=== PATIENT | female | born 1990 | race Caucasian/White ===

== ENCOUNTER 2017-01-17 06:48 | Inpatient (IN) | payer BC ==
[~2017-01-17] VITALS: Ht 160 cm; Wt 118.0 kg
[~2017-01-17 06:48] MED LIST: PREN1TAB53 PO; PROG100C3 PO
[2017-01-17] MEDS ORDERED: LR 1,000 ML IV PRN (06:52)
--- OUTSIDE RECORDS SUMMARY | 2017-01-17 06:56 | XMS REPORT | Continuity of Care Document ---
Author Author [facility] Organization [facility] Address Unknown Phone Unavailable Support Name Relationship Address Phone YESENIA GODDARD MD Caregiver [address] [place] [address] [address] [place] [address] Unavailable YESENIA GODDARD MD Caregiver [address] [place] [address] [address] [place] [address] Unavailable FRANCESCO MACKENZIE DO Caregiver [address] [place] [address] [address] [place] [address] Unavailable CORIE LOMBARDI Next Of Kin [address] [place] [address] Insurance Providers Guarantor Blaise Lombardi Address [address] [place] [address] Email [email or web address] Policy Number [id number] Subscriber's Name Blaise Lombardi Relationship 17 Self Advance Directives Directive Response Recorded Date/Time Ordered Resuscitation Status Full Code 11/27/16 6:12am Resuscitation Documents on File No 11/27/16 6:45am DPOA for Healthcare Only No 11/27/16 6:45am Living Will No 11/27/16 6:45am Problems Active Problems Medical Problem Onset Date Status 21 weeks gestation of 07/11/2014 Acute 29 weeks gestation of Unknown Cervical cerclage suture present in third trimester Unknown History of delivery, currently in third trimester Unknown Spontaneous vaginal delivery 07/11/2014 Acute Medications Current Home Medications Medication Dose Units Route Directions Days Qty Instructions Start Date Vits W-Ca,Fe,Fa(<1MG) () 1 Tab Tablet 1 Tab Oral Daily 03/31/12 Progesterone (Prometrium) 100 Mg Capsule 1 Cap Oral Daily 30 Capsule 11/27/16 Past Home Medications Medication Directions Ordered Status Ferrous Sulfate (Iron) 325 ( Tablet, 324 Mg Oral Twice A Day as needed Discontinued Hydrocodone/Acetaminophen (Timbo 5-325 Tablet) 1 Each Tablet, 1-2 Tab Oral Every 4 Hours as needed for Pain 07/10/14 Discontinued Ibuprofen 800 Mg Tablet, 800 Mg Oral Every 8 Hours as needed for Pain Discontinued Social History Social History Problem Response Recorded Date/Time Onset Date Status Reason for Hospitalization Magnesium for neuroprotection 11/27/2016 7:04pm Not Applicable Not Applicable Hx Substance Use No 07/10/2014 12:44pm Not Applicable Not Applicable Has the pt used tobacco in the last 12 months No 11/27/2016 6:47am Not Applicable Not Applicable Query Response Start Date Stop Date Smoking Status Former smoker Hospital Discharge Instructions Instructions: Care Instructions: I was in the hospital because (patient own words): to get magnesium sulfate Discharge Diet: regular Discharge Activity: see discharge instructions Follow Up Appointments: Keep next scheduled appointment with Dr. Goddard. Come to [facility] Maternal Child Unit tomorrow, November 28 @ 7:00am for second steriod shot. Pending Lab / Results: No Pending Lab Expected Signs/Symptoms: n/a Notify Physician If: see discharge instructions During Business Hours:: Please call the physician's office at [phone]. After Business Hours:: Please call [phone] and have the machine set up operator paper goods page the physician. Pain Management/Treatment: n/a Wound/Incision Care: n/a Condition at time of discharge: Good Plan of Care Discharge Date 11/27/16 7:00pm Disposition 01 DISCHARGED HOME, SELF-CARE Prescriptions See Medication Section Care Plan and Goals See Discharge Instructions Section Functional Status Query Response Date Recorded Ability to complete ADL's impeded by No change November 27, 2016 6:45am Allergies, Adverse Reactions, Alerts No known allergies. Immunizations Query Response on File Recorded Date/Time Hx Influenza Vaccination Y 07/12/16 11/27/16 6:47am Hx Pneumococcal Vaccination No 11/27/16 6:47am Hx Tetanus, Diptheria, Pertussis Y 07/10/14 1:00pm Hx Influenza Vaccination Y 07/12/16 11/27/16 6:47am Hx Tetanus Diptheria No 07/10/14 1:00pm Hx Tetanus, Diptheria, Pertussis Y 07/10/14 1:00pm Hx Tetanus Toxoid Vaccination No 07/10/14 1:00pm Vital Signs Acute Vital Signs Vital Response Date/Time Temperature (Fahrenheit) 98.2 deg F (96.8 - 99.1) 11/27/2016 6:22am Temperature (Calculated Celsius) 36.80653 degrees C (36.0 - 37.3) 11/27/2016 6:22am Pulse Rate (adult) 107 bpm (60 - 100) 11/27/2016 7:02am Respiratory Rate 16 breaths/min (10 - 20) 11/27/2016 6:22am O2 Sat by Pulse Oximetry 100 % (90 - 100) 11/27/2016 7:02am Oxygen Delivery Method Room Air 11/27/2016 7:02am Blood Pressure 127/63 mm Hg 11/27/2016 7:02am Blood Pressure Source Automatic Cuff 11/27/2016 7:02am Height (Feet) 5 feet 11/27/2016 6:43am Height (Inches) 3.00 inches 11/27/2016 6:43am Weight (Kilograms) 110.680 kg 11/27/2016 6:43am Body Mass Index (BMI) 43.2 11/27/2016 6:43am Results Laboratory Results Test Name Result Units Flags Reference Collection Date/Time Result Date/ Time Comments White Blood Count 10.1 T/MM3 4.5-11.0 11/27/2016 6:28am 11/27/2016 6: 32am Red Blood Count 4.10 M/MM3 4.00-5.20 11/27/2016 6:28am 11/27/2016 6: 32am Hemoglobin 11.3 GM/DL L 12-16 11/27/2016 6:28am 11/27/2016 6:32am Hematocrit 33.9 % L 36-46 11/27/2016 6:2811/27/2016 6:32am Mean Corpuscular Volume 82.7 UM3 80-100 11/27/2016 6:28am 11/27/2016 6: 32am Mean Corpuscular Hemoglobin 27.6 UUG 26-34 11/27/2016 6:28am 2016 6:32am Mean Corpuscular Hemoglobin Concent 33.3 GM/DL 31-37 11/27/2016 6:28am 11/27/2016 6:32am RDW Standard Deviation 42.1 FL 36.9-50.2 11/27/2016 6:2811/27/2016 6 :32am Platelet Count 222 T/MM3 130-400 11/27/2016 6:11/27/2016 6:32am Mean Platelet Volume 9.0 UM3 L 9.4-12.4 11/27/2016 6:11/27/2016 6: 32am Neutrophils (%) (Auto) 78.5 % H 33-66 11/27/2016 6:11/27/2016 6: 32am Lymphocytes (%) (Auto) 16.8 % L 23-45 11/27/2016 6:11/27/2016 6: 32am Monocytes (%) (Auto) 3.9 % 0-9.0 11/27/2016 6:11/27/2016 6:32am Eosinophils (%) (Auto) 0.5 % 0-4 11/27/2016 6:11/27/2016 6:32am Basophils (%) (Auto) 0.1 % 0-2 11/27/2016 6:11/27/2016 6:32am Immature Granulocyte % (Auto) 0.2 % 0.0-0.5 11/27/2016 6:2016 6:32am Absolute Neutrophils (auto) 7.9 T/MM3 H 1.8-7.7 11/27/2016 6:2016 6:32am Absolute Lymphocytes (auto) 1.7 T/MM3 1-4.8 11/27/2016 6:2016 6:32am Absolute Monocytes (auto) 0.4 T/MM3 0-0.8 11/27/2016 6:11/27/2016 6:32am Absolute Eosinophils (auto) 0.1 T/MM3 0-0.5 11/27/2016 6:2016 6:32am Absolute Basophils (auto) 0.0 T/MM3 0-0.2 11/27/2016 6:11/27/2016 6:32am Absolute Immature Granulocyte (auto 0.02 T/MM3 0.00-0.03 11/27/2016 6: 11/27/2016 6:32am Icterus Index < 2 0-7 11/27/2016 6:11/27/2016 6:41am Chemistry Specimen Hemolysis < 15 0-25 11/27/2016 6:28am 11/27/2016 6 :41am 0-25: Specimen Exhibited No Hemolysis. Turbidity < 20 0-20 11/27/2016 6:2811/27/2016 6:41am Sodium Level 140 MEQ/L 134-144 11/27/2016 6:11/27/2016 6:41am Potassium Level 3.0 MEQ/L L 3.6-5 11/27/2016 6:11/27/2016 6:41am Chloride Level 108 MEQ/L H 98-107 11/27/2016 6:2811/27/2016 6:41am Carbon Dioxide Level 23 MEQ/L 22-30 11/27/2016 6:11/27/2016 6: 41am Anion Gap 9 MEQ/L 5-15 11/27/2016 6:11/27/2016 6:41am Blood Urea Nitrogen 5.0 MG/DL L 7-11/27/2016 6:2811/27/2016 6: 41am Creatinine 0.4 MG/DL L 0.7-1.2 11/27/2016 6:2811/27/2016 6:41am BUN/Creatinine Ratio 13 RATIO 6-11/27/2016 6:11/27/2016 6:41am Glomerular Filtration Rate Calc 191 11/27/2016 6:28am 11/27/2016 6: 41am Glucose Level 113 MG/DL H 65-110 11/27/2016 6:2811/27/2016 6:41am Calculated Osmolality 267 MOSM/KG 261-280 11/27/2016 6:11/27/2016 6:41am Calcium Level 8.7 MG/DL 8.4-10.2 11/27/2016 6:2811/27/2016 6:41am Procedures No known history of procedures. Encounters Encounter Location Arrival/Admit Date Discharge/Depart Date Attending Provider Discharged Inpatient (obs) [facility] 11/27/16 6:01am 11/27/16 7: 00pm YESENIA GODDARD MD
[2017-01-17] MEDS ORDERED: ACETAMINOPHEN 500 MG TABLET PO PRN (07:00)
[2017-01-17] MEDS ORDERED: LIDOCAINE 1% (10mg/ml) 2ml SDV ID PRN (07:00)
[2017-01-17] MEDS ORDERED: MAG-AL + SIM LIQUID 30 ML UDC PO PRN (07:00)
[2017-01-17] MEDS ORDERED: OXYTOCIN 30 UNIT in D5LR 500 ML SCH (07:00)
[2017-01-17] MEDS ORDERED: CALCIUM CARBONATE 500mg Chewable TAB PO PRN (07:00)
[2017-01-17 07:25] LABS: BASOPHILS % (AUTO) 0.1 % (0-2); EOSINOPHILS % (AUTO) 0.4 % (0-4); HCT - HEMATOCRIT 34.2 % (36-46); HGB - HEMOGLOBIN 11.2 GM/DL (12-16); IMMATURE GRANULOCYTE # (AUTO) 0.02 T/MM3 (0.00-0.03); IMMATURE GRANULOCYTE % (AUTO) 0.3 % (0.0-0.5); LYMPHOCYTES % (AUTO) 28.4 % (23-45); MEAN CORPUSCULAR HGB 26.4 UUG (26-34); MEAN CORPUSCULAR HGB CONC(MCHC 32.7 GM/DL (31-37); MEAN CORPUSCULAR VOLUME 80.7 UM3 (80-100); MEAN PLATELET VOLUME 9.5 UM3 (9.4-12.4); MONOCYTES # (AUTO) 0.3 T/MM3 (0-0.8); MONOCYTES % (AUTO) 3.8 % (0-9.0); NEUTROPHILS #(AUTO)-ABSOLUTE 4.8 T/MM3 (1.8-7.7); RED BLOOD COUNT 4.24 M/MM3 (4.00-5.20); WBC - WHITE BLOOD COUNT 7.2 T/MM3 (4.5-11.0)
[2017-01-17 07:33] LABS: ALT (SGPT) 26 U/L (9-52); AST (SGOT) 25 U/L (14-36)
[2017-01-17 07:37] VITALS: BP 136/78; PULSE 90; RESP 18; TEMP 98.2; O2SAT 99
--- NOTE | 2017-01-17 07:47 | ANESOB ---
Epidural/ Date/Time DATE: 01/17/17 TIME: 07:44 Preop Diagnosis Procedure: Labor Epidural Plan: Epidural Height: 5 ' 3.00 " Weight: 118.000 kg BMI: kg/m2 P:1 Medications & Allergies Inpatient Medications Current Medications Medications (Trade) Dose Ordered Sig/Nita Start Time Stop Time Status Last Admin Dose Admin Lidocaine HCl 0.2 mg 0.2 mg PRN PRN 01/17/17 07:00 Lactated Ringer's (Lactated Ringers) 1,000 ml @ 0 mls/hr Q0M PRN 01/17/17 06:52 01/17/17 07:36 999 MLS/HR Acetaminophen (Tylenol Extra Strength) 1-2 TABS = 500-1,000 MG Q4H PRN 01/17/17 07:00 Al Hydroxide/Mg Hydroxide (Maalox) 30 ml Q4H PRN 01/17/17 07:00 Calcium Carbonate 1-2 TABS Q2H PRN 01/17/17 07:00 Dextrose/Lactated Ringer's 1,000 ml @ 0 mls/hr Q0M PRN 01/17/17 09:00 Oxytocin/Dextrose/ Lactated Ringer's (Pitocin/D5lr) 503 ml @ 0 mls/hr Q0M 01/17/17 07:00 Vits W-Ca,Fe,Fa(<1MG) () 1 Tab Tablet, 1 TAB PO DAILY, ( Reported) Last Taken: on 01/16/17 1100 Progesterone (Prometrium) 100 Mg Capsule, 1 CAP PO DAILY, (Reported) Last Taken: on 01/09/17 2100 Coded Allergies: No Known Allergies (Unverified , 03/31/12) Medical/Surgical History Anesthesia PMH: Reports: , Denies: *Diabetes, *Hypertension, *RI, Anesthesia Reactions, Asthma, Bld Transfusion Reaction, CHF, COPD, CVA/Stroke/ TIA, Cancer, Malignant Hyperthermia, Seizures Smoking Status: Never smoker Does patient use chewing tobac: No Second Hand Exposure: No Substance Use Type: does not use Alcohol Intake: none Last Drink: prior to arrival Anesthesia Adverse Reactions: FOUND none Family Hx of Anesthesia Advers: none Hx of Motion Sickness: No Complications During : No Pertinent Findings Laboratory Tests 01/17/17 07:18 EKG Rhythm: Sinus Rhythm Physical Exam Respiratory: Lungs clear Cardiovascular: Regular rate, rhythm Airway Assessment Mallampati Score: II TMD: 3 Fingerbreadths Neck Extension: Fair Overall Assessment: May Be Diff Intubation ASA: 2 Discussion Discussed risks/options/alternatives of anesthesia. Patient consents. Nursing pain assessment noted. Present for Discussion: Present: Spouse Attestation Statement Prior to the delivery of any anesthetic medication, I examined the patient, developed the plan, obtained the patient's consent and discussed the risk and benefits of the procedure with the patient/guardian. If the note happens to be signed after anesthesia start time, it is only due to providing efficient care of the patient and documenting at a time when the computer is available. GREGG LEACH FACILITIES MECHANICAL DESIGN ENGINEER Jan 17, 2017 07:46
[2017-01-17] MEDS ORDERED: D5LR 1,000 ML IV PRN (09:00)
--- NOTE | 2017-01-17 10:31 | OPNOTEF ---
DATE OF OPERATION 01/17/2017 PREOPERATIVE DIAGNOSIS Cerclage, term . History of incompetent cervix. POSTOPERATIVE DIAGNOSIS Cerclage, term . History of incompetent cervix. PROCEDURE Removal of cerclage. SURGEON Bridgett Goddard MD ANESTHESIA Epidural [employer] REYNALDO Mohr Minimal DESCRIPTION OF PROCEDURE Ms. Lombardi was prepped in the usual sterile fashion. Sterile speculum was used to visualize the cervix. The cerclage was visualized and grasped with a clamp. The stitch was snipped with a suture scissors, then pulled without any difficulty from the cervix. Hemostasis was under good control. Cervix visibly closed at this time. The patient tolerated the procedure well. We removed our speculum and began the Pitocin for induction of labor. MAGY
[2017-01-17] MEDS ORDERED: OXYTOCIN 30 UNIT in D5W 500 ML IV ONE (15:10)
[2017-01-17] MEDS ORDERED: PHENYLEPHRINE RECTAL SUPPOSITORY RECTALLY PRN (15:15)
[2017-01-17] MEDS ORDERED: DiphenhydrAMINE 25 MG CAPSULE PO PRN (15:15)
[2017-01-17] MEDS ORDERED: MILK OF MAGNESIA 30 ML SUSP PO PRN (15:15)
[2017-01-17] MEDS ORDERED: HYDROCORTISONE 2.5% CREAM 30 GM RECTALLY PRN (15:15)
--- NOTE | 2017-01-17 17:58 | LDNF ---
DATE OF DELIVERY 01/17/2017 SEAN Montana is a 26-year-old 5, para 1-1-2-1 at 37 weeks 1 day gestational age who was brought in for an induction this morning due to mild preeclampsia. She received an epidural first. Dr. Goddard removed her cerclage and then started Pitocin. She then turned the patient over to me. Her membranes were ruptured artificially, returning clear fluids. She progressed nicely throughout labor and only pushed for a short time. After the head delivered there was a loose nuchal cord that was reduced. Baby was vigorous at delivery so he was placed on mom's abdomen and the cord clamping was delayed for more than two minutes. She had a spontaneous vaginal delivery of a viable male , Apgars 8/9, weight 3285 g, name "Jhonatan." The placenta delivered spontaneously. She had no perineal lacerations. However, her cervix was inspected and was found to have a laceration at 7 o'clock. It was not bleeding so it was not repaired. She also had a skin tag on the right upper medial thigh that she asked me to remove. This was excised at the base. A [id number] of 3-0 chromic was placed for good hemostasis. Mom and baby tolerated the delivery of delivery well. MAGY
--- NOTE | 2017-01-17 19:00 | NUR ---
Epidural Epidural catheter removed without complications, tip intact, no S/S of infection noted. Area cleansed with alcohol, betadine and covered with a bandaid. Pt. educated about S/S of infection and to call doctor with concerns.
[2017-01-17 19:16] VITALS: BP 131/81; PULSE 110; RESP 18; TEMP 98.1; O2SAT 99
[2017-01-17] MEDS: HYDROCODONE/APAP 5 mg/325 mg TABLET PO PRN (23:38)
[2017-01-17] MEDS: IBUPROFEN 800 MG TABLET PO PRN (23:38)
[2017-01-18] MEDS: HYDROCODONE/APAP 5 mg/325 mg TABLET PO PRN (03:17)
[2017-01-18 03:33] VITALS: BP 117/63; PULSE 65; RESP 18; TEMP 98; O2SAT 99
--- NOTE | 2017-01-18 08:03 | PNPDOC ---
Progress Note PPD1 Rubella: Immune GBS: Negative Blood Type:A pos Subjective 01/18/17 Lochia: Moderate Pain: Controlled (Using both [place] and Ibuprofen. ) Voiding: Voiding Nausea and Vomiting: No Nausea/Vomiting Objective VSS AF Vital Signs Date Time Temp Pulse Resp B/P Pulse Ox O2 Delivery O2 Flow Rate FiO2 01/18/17 03:33 98.0 65 18 117/63 99 Room Air General: Alert and Oriented Abdomen: Fundus Firm Extremities: Non-tender Side: Bilateral Degree: 1+ Assessment Plan Routine Care (Prefers dismissal today. Rx of New[place] 5mg/325mg #15 sent home with patient. ), Discharge Home JEAN PAUL FRANCO WALLCOVERING HANGER Jan 18, 2017 08:03
[2017-01-18] MEDS ORDERED: HYDR-4246 PO (08:05)
[2017-01-18] MEDS ORDERED: IBUP-1547 PO (08:05)
--- NOTE | 2017-01-18 08:06 | ANESPO ---
Post-Op Note Date 01/18/17 Time: 08:05 Status Pt Participated in Evaluation: Pt participated in person Vital Signs Date Time Temp Pulse Resp B/P Pulse Ox O2 Delivery O2 Flow Rate FiO2 01/18/17 03:33 98.0 65 18 117/63 99 Room Air Respiratory Function: Airway patent Cardiovascular Function: Regular pulse Mental Status: Alert/oriented Pain Level Intensity: 0 Unable to Assess Pain Due To: Pt Sleeping Hydration: Taking po fluids Complications during Recovery None apparent Follow-Up Instructions Instructions Per Surgeon GREGG LEACH CRNA Jan 18, 2017 08:06
[2017-01-18] MEDS ORDERED: DOCUSATE CALCIUM 240 MG CAPSULE PO SCH (09:00)
[2017-01-18] MEDS: IBUPROFEN 800 MG TABLET PO PRN (10:43)
[2017-01-18 11:30] VITALS: BP 136/75; PULSE 90; RESP 18; TEMP 98.3; O2SAT 99
[2017-01-18 15:50] VITALS: BP 130/68; PULSE 92; RESP 18; TEMP 98.2
== END 2017-01-18 17:36 | disposition home or self-care (01) | DRG 981 ==
LOC: MC 06:48
PROVIDERS: ADMIT Obstetrics & Gynecology; ATTEND Obstetrics & Gynecology
PROC: 10E0XZZ Delivery of Products of Conception, External Approach (ICD-10-PCS; principal; 2017-01-17)
PROC: 0UCC7ZZ Extirpation of Matter from Cervix, Via Natural or Artificial Opening (ICD-10-PCS; 2017-01-17)
PROC: 0HBHXZZ Excision of Right Upper Leg Skin, External Approach (ICD-10-PCS; 2017-01-17)
PROC: 3E033VJ Introduction of Other Hormone into Peripheral Vein, Percutaneous Approach (ICD-10-PCS; 2017-01-17)
PROC: 10907ZC Drainage of Amniotic Fluid, Therapeutic from Products of Conception, Via Natural or Artificial Opening (ICD-10-PCS; 2017-01-17)
DX: O14.04 Mild to moderate pre-eclampsia, complicating childbirth (principal); O34.33 Maternal care for cervical incompetence, third trimester; O71.3 Obstetric laceration of cervix; O69.81X0 Labor and delivery complicated by cord around neck, without compression, not applicable or unspecified; O99.72 Diseases of the skin and subcutaneous tissue complicating childbirth; L91.8 Other hypertrophic disorders of the skin; O09.293 Supervision of pregnancy with other poor reproductive or obstetric history, third trimester; O09.213 Supervision of pregnancy with history of pre-term labor, third trimester; Z3A.37 37 weeks gestation of pregnancy; Z37.0 Single live birth
CPT/HCPCS: 84450; 84460; 85025